=== PATIENT | male | born 2000 | race Caucasian/White ===

== ENCOUNTER 2023-01-18 16:02 | Emergency (ER) | payer OTHER ==
[~2023-01-18] VITALS: Ht 172.7 cm; Wt 84.3 kg
[2023-01-18 16:03] VITALS: BP 127/69
[2023-01-18] MEDS ORDERED: IBUP-1022 PO (16:27)
== END 2023-01-18 16:49 | disposition home or self-care (01) ==
LOC: M ED 16:02
DX: S46.212A Strain of muscle, fascia and tendon of other parts of biceps, left arm, initial encounter (principal); X50.0XXA Overexertion from strenuous movement or load, initial encounter; Y92.89 Other specified places as the place of occurrence of the external cause; Y93.89 Activity, other specified; Y99.8 Other external cause status